=== PATIENT | female | born 2005 | race Caucasian/White ===

== ENCOUNTER 2024-01-01 05:50 | Emergency (ER) | payer OTHER, SELFPAY ==
[2024-01-01 06:10] VITALS: BP 138/74; PULSE 70; RESP 16; TEMP 36.7; O2SAT 99; BMI 34.0
[2024-01-01 06:54] VITALS: BP 140/78; PULSE 80; RESP 16; TEMP 36.4
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
== END 2024-01-01 06:55 | disposition home or self-care (01) ==
PROVIDERS: Emergency Provider Family Medicine
DX: R07.89 Other chest pain (principal)
CPT/HCPCS: 99283